=== PATIENT | male | born 1950 | race Caucasian/White ===

== ENCOUNTER 2020-09-02 09:46 | Outpatient (REF) | payer MEDICARE, SELFPAY ==
--- NOTE | 2020-09-02 10:45 | EMG_ITS ---
HISTORY OF PRESENT ILLNESS: This is a 70-year-old man with a 6-month history of bilateral upper extremity pain and numbness. Both hands affected symmetrically. He also has some neck pain. CURRENT MEDICATIONS: Abilify. PHYSICAL EXAMINATION: On examination, he is alert and oriented with normal intellectual functions. Cranial nerves II through XII are normal. Muscle tone and strength are normal in all 4 extremities. Deep tendon reflexes symmetrical. IMPRESSION: Carpal tunnel syndrome. NERVE CONDUCTION STUDY: Moderately severe carpal tunnel syndrome on the right and mild carpal tunnel syndrome on the left. Normal EMG of the right C5-T1 innervated muscles. MD CAT Dickinson/JACEY / [id number]
== END 2020-09-02 09:47 | disposition home or self-care (01) ==
LOC: HO.NEURO 09:46
PROVIDERS: PCP Internal Medicine; Visit Provider Internal Medicine
DX: R20.0 Anesthesia of skin (principal); G62.9 Polyneuropathy, unspecified
CPT/HCPCS: 95860; 95885; 95913

== ENCOUNTER → 2020-11-23 13:16 | Outpatient (BNVA) | payer MEDICARE, SELFPAY | PROVIDERS: PCP Internal Medicine; Visit Provider Orthopaedic Surgery | DX: G56.03 Carpal tunnel syndrome, bilateral upper limbs (principal) | CPT/HCPCS: 99202 ==

== ENCOUNTER 2020-12-16 12:12 | Day surgery (SDC) | payer MEDICARE, SELFPAY ==
[2020-12-09 15:22] VITALS: BMI 24.9
[2020-12-16 13:00] VITALS: BP 100/66; PULSE 72; RESP 16; TEMP 36.7; O2SAT 96
[2020-12-16 14:25] VITALS: BP 115/68; PULSE 70; RESP 20; TEMP 36.6; O2SAT 100
--- NOTE | 2020-12-16 14:26 | W.PM.OPN ---
Operative Note Operative Note Date of Service: 12/16/20 Narrative: Preop diagnosis: 1. Right Carpal tunnel syndrome Postop diagnosis: 1. Right Carpal tunnel syndrome Procedure: 1. Right Carpal tunnel release Surgeon: Abida Roque MD Anesthesia: local block using 1% lidocaine with epinephrine Findings: Thickened transverse carpal ligament. EBL: Less than 5 mL Specimens: None Complications: None Disposition: Brought to recovery room in stable condition Plan: Follow-up for 7-10 days for wound check and suture removal Indications: The patient is 70 years old, with right carpal tunnel syndrome that has been unresponsive to nonoperative management. The risks and benefits of operative treatment including but not limited to risk of damage to blood vessels, nerves, tendons, infection, persistent pain, persistent symptoms, or possible need for additional surgery were discussed with the patient and the patient wishes to proceed with surgery. Procedure: Once consent was obtained a local block was performed using a combination of 1% lidocaine with epinephrine. The patient was then brought back to the operating suite and placed on the operative table in supine position. A tourniquet was applied to the proximal aspect of the right upper extremity and the limb was prepped and draped in a standard surgical fashion. Once assured that we had a good block, a 1.5 cm longitudinal incision was made centered over the right carpal tunnel. The incision was made through the skin to the subcutaneous tissues using a #15 blade. Dissection was made down to the level of the transverse carpal ligament with care being taken to protect the palmar cutaneous nerve. Once the transverse carpal ligament was clearly visualized, a longitudinal incision was made in the transverse carpal ligament 1st using a #15 blade, then using tenotomy scissors under direct visualization. Care was taken to look for and protect the motor branch of the median nerve when seen in this area. Once satisfied with our carpal tunnel release the wound was copiously irrigated with normal saline and hemostasis was obtained with a brief period of local pressure. The skin edges were reapproximated with some 5.0 nylon suture material and a sterile dressing was applied. The patient appears to have tolerated the procedure well and with no complications. All digits were well vascularized at the conclusion of the case.
--- NOTE | 2020-12-16 14:27 | MHC.SHP ---
Pre-Procedural Eval Section B Chief Complaint: carpal tunnel syndrome,right Allergies: Allergies Allergy/AdvReac Type Severity Reaction Status Date / Time No Known Allergies Allergy Verified 12/09/20 15:21 Plan I have reviewed the history and physical and performed a pertinent physical examination on my patient. No changes have occurred unless specified.
== END 2020-12-16 16:00 | disposition home or self-care (01) ==
PROVIDERS: PCP Internal Medicine; Visit Provider Orthopaedic Surgery
PROC: (CPT 64721; principal; 2020-12-16 13:20)
DX: G56.01 Carpal tunnel syndrome, right upper limb (principal); F32.9 Major depressive disorder, single episode, unspecified; G62.9 Polyneuropathy, unspecified; Z79.899 Other long term (current) drug therapy
CPT/HCPCS: 64721

== ENCOUNTER → 2020-12-28 13:59 | Outpatient (BNVA) | payer MEDICARE, SELFPAY | PROVIDERS: PCP Internal Medicine; Visit Provider Orthopaedic Surgery | DX: G56.02 Carpal tunnel syndrome, left upper limb (principal); G56.01 Carpal tunnel syndrome, right upper limb | CPT/HCPCS: 99212 ==

== ENCOUNTER 2021-03-24 06:11 | Outpatient (REF) | payer MEDICARE, SELFPAY ==
[2021-03-24 11:20] LABS: MANUAL DIFF FLAG NO
[2021-03-24 11:38] LABS: Basophils Percent Auto 0.7 % (0-2); Eosinophils Absolute Auto 0.2 X10*3/uL (0.0-0.4); Eosinophils Percent Auto 3.3 % (0-4); Hematocrit 43.9 % (42-52); Hemoglobin 14.3 g/dl (14.0-18.0); Imm Gran Abs Auto 0.02 X10*3/uL (0.00-0.03); Imm Gran Pct Auto 0.3 % (0.0-0.4); Immature Retic Fraction 3.7 % (2.3-13.4); Lymphocytes Absolute Auto 1.7 X10*3/uL (1.2-4.9); Lymphocytes Percent Auto 27.4 % (20-40); Mean Corpuscular HGB Conc 32.6 g/dl (31.0-36.0); Mean Corpuscular Hemoglobin 30.4 pg (27.0-33.0); Mean Corpuscular Volume 93.4 fL (80-98); Mean Platelet Volume 10.9 fL (9.4-12.4); Monocytes Absolute Auto 0.8 X10*3/uL (0.1-1.2); Monocytes Percent Auto 13.6 % (2-11); Neutrophils Absolute Auto 3.3 X10*3/uL (2.0-8.3); Neutrophils Percent Auto 54.7 % (45-73); Platelet Count 180 X10*3/uL (160-400); Red Cell Distribution Width 13.3 % (11.0-16.0); Retic HGB Equivalent 34.5 pg (30.0-35.0); Reticulocyte Percent 0.8 % (0.5-1.8); Reticulocytes Absolute 0.036 X10*6/uL (0.026-0.095); White Blood Count 6.1 X10*3/uL (4.8-10.8)
[2021-03-24 11:48] LABS: Iron 126 mcg/dL (45-160); Percent Iron Saturation 40 % (15-50); Total Iron Binding Capacity 314 mcg/dL (228-428); Unsaturated Iron Binding 188 ug/dL
[2021-03-24 12:08] LABS: Ferritin 105 ng/mL (20-250)
[2021-03-24 12:19] LABS: Folate > 20.0 ng/mL (> or = 4.0); Vitamin B12 1140 pg/mL (200-900)
== END 2021-03-24 06:12 | disposition home or self-care (01) ==
LOC: HO.HMGCLDS 06:11
PROVIDERS: PCP Internal Medicine; Visit Provider Internal Medicine
DX: D64.9 Anemia, unspecified (principal)
CPT/HCPCS: 36415; 82607; 82728; 82746; 83540; 85025; 85045

== ENCOUNTER 2021-04-16 09:06 | Outpatient (REF) | payer MEDICARE, SELFPAY ==
--- NOTE | 2021-04-16 11:27 | MHC.AU.ANO ---
Adult Audiological Evaluation Date of Visit: 04/16/21 Reason for Appointment: Patient has been experiencing gradually increasing hearing difficulty over the last several years. He reports occasional tinnitus in his right ear. Does patient feel they have a hearing loss?: Yes If Yes, Which Ear?: Both Ears When Was Hearing Difficulty First Noticed?: Several Years Has hearing been tested previously?: No Hearing Handicap Inventory: HHIE SCORE: 24 Based on HHIE score, patient has: Mild to moderate perceived hearing handicap Ear History: Ear Deformity: Difference noted on top of left pinna Recent Ear Pain: None Reported Family History of Hearing Loss?: No Recent Ear Infections: None Reported Ear Infections in Childhood: None Reported History of Ear Wax Buildup: Recently had ears cleaned at PCP's office Previous Ear Surgery: None Reported Ear used on the phone: Left Ear Blocked/Full Sensation in Ear(s): None Reported History of occupational noise exposure?: Yes: [employer]- 2 Years History: History: Yes Branch: [employer] Years in : Less than 4 years Medical History: Medical History: Prostate Cancer in 2008, Carpal Tunnel Surgery in 2020 Otoscopy: Right Ear: Unremarkable Left Ear: Unremarkable Tympanometry: Tympanometry performed due to: To assess integrity of the middle ear system Right Ear: Normal Middle Ear System (Type A) Left Ear: Reduced Middle Ear Compliance (Type As) Hearing Evaluation: Transducer(s) Used: Circumaural Headphones Method: Conventional Audiometry Stimuli Used: Pure Tones Right Ear: Description of Hearing: Normal sloping to profound sensorieneural hearing loss Left Ear: Description of Hearing: Normal sloping to profound sensorineural hearing loss Speech Recognition Threshold (SRT): Method Used: Recorded Lists Stimuli Used: Spondee Words Right Ear: 30 dBHL Left Ear: 30 dBHL Word Discrimination: Method: Recorded Lists Word Lists Used: NU-6 Right Ear: 68% at 70 dBHL Left Ear: 68% at 70 dBHL Most Comfortable Level (MCL): Right Ear: 70 dBHL Left Ear: 70 dBHL QuickSIN: Tested binaurally at 70 dBHL: 17 dB SNR Loss, which suggests significant difficulty listening in noise Interpretation of Results: Normal to profound sensorineural hearing loss bilaterally, slightly worse in the left ear. Thickened area noted on top of left pinna. Reduced middle ear compliance in the left ear. QuickSIN results suggest significant difficulty listening in noise. With this degree of hearing loss, it is expected that the patient would have difficulty following along in average conversation. Recommendations: Audiological re-evaluation in one year. Follow-up with PCP or ENT may be warranted due to slight asymmetry in thresholds and reduced middle ear compliance of the left ear. Patient is interested in hearing aids, but would like to first discuss them with his and do research on them at home. He was provided with brochures for [employer], [facility], and [employer]. If he would like to discuss hearing aids in further detail, he is welcome to schedule a hearing aid evaluation. Diagnosis: Primary Diagnosis: H90.3 Bilateral Sensorineural Hearing Loss Services Performed: Comprehensive Audiological Evaluation (CPT 82091), Tympanometry (CPT 10601) Signature: Provider: Markus Muniz, CCC-A
== END 2021-04-16 09:07 | disposition home or self-care (01) ==
LOC: HO.SH 09:06
PROVIDERS: Visit Provider Internal Medicine
DX: H90.3 Sensorineural hearing loss, bilateral (principal)
CPT/HCPCS: 92557; 92567

== ENCOUNTER 2022-01-31 06:06 | Outpatient (REF) | payer MEDICARE, SELFPAY ==
[2022-01-31 11:53] LABS: Immature Retic Fraction 5.2 % (2.3-13.4); Retic HGB Equivalent 35.9 pg (30.0-35.0); Reticulocyte Percent 0.9 % (0.5-1.8); Reticulocytes Absolute 0.042 X10*6/uL (0.026-0.095)
[2022-01-31 12:17] LABS: Alanine Aminotransferase 27 U/L (0-40); Alkaline Phosphatase 67 U/L (39-117); Anion Gap 12 (12-20); Aspartate Amino Transferase 29 U/L (5-37); Bilirubin Total 0.3 mg/dL (0.0-1.0); Blood Urea Nitrogen 18 mg/dL (9-16); Calcium 9.2 mg/dL (8.4-10.2); Carbon Dioxide 25 mmol/L (22-29); Chloride 108 mmol/L (96-108); Cholesterol 177 mg/dL; Estimated Glomerular Filt Rate > 60; Glucose Random 95 mg/dL (60-115); HDL Cholesterol 52 mg/dL; Iron 80 mcg/dL (45-160); LDL Cholesterol Calculated 109 mg/dl; Percent Iron Saturation 26 % (15-50); Sodium 141 mmol/L (135-145); Total Iron Binding Capacity 303 mcg/dL (228-428); Total Protein 6.5 g/dL (6.5-8.0); Triglycerides 81 mg/dL; Unsaturated Iron Binding 223 ug/dL
[2022-01-31 12:30] LABS: Ferritin 101 ng/mL (20-250); Free T4 (Free Thyroxine) 0.86 ng/dL (0.71-1.85); Prostate Specific Antigen Scr < 0.05 ng/mL (<0.05-4.0); Thyroid Stimulating Hormone 3.73 uIU/mL (0.32-4.0)
[2022-01-31 12:51] LABS: Folate > 20.0 ng/mL (> or = 4.0); Vitamin B12 938 pg/mL (200-900)
--- NOTE | 2022-04-14 10:08 | EMG_ITS ---
Right tibial and peroneal motor studies were performed. Right superficial peroneal and sural sensory studies were performed. Tibial H-reflex was obtained and paraspinal muscles were tested with a needle. IMPRESSION: 1. Mild sensory-motor axonal peripheral neuropathy. 2. Chronic right lower, probably, L4-5 radiculopathy. MD KIMANI Patiño/JACEY / [id number]
== END 2022-01-31 06:07 | disposition home or self-care (01) ==
LOC: HO.HMGCLDS 06:06
PROVIDERS: Visit Provider Internal Medicine
DX: Z12.5 Encounter for screening for malignant neoplasm of prostate (principal); D64.9 Anemia, unspecified; E78.00 Pure hypercholesterolemia, unspecified; Z85.46 Personal history of malignant neoplasm of prostate
CPT/HCPCS: 36415; 80053; 80061; 82607; 82728; 82746; 83540; 84153; 84439; 84443; 85045

== ENCOUNTER 2022-04-14 10:09 | Outpatient (REF) | payer MEDICARE, SELFPAY | END 2022-04-14 10:10 | disposition home or self-care (01) | LOC: HO.NEURO 10:09 | PROVIDERS: PCP Internal Medicine; Visit Provider Internal Medicine | DX: R20.0 Anesthesia of skin (principal) | CPT/HCPCS: 95886; 95909 ==

== ENCOUNTER 2022-11-03 07:14 | Outpatient (REF) | payer MEDICARE, SELFPAY ==
--- NOTE | ~2022-11-03 | MR_ITS ---
MR LUMBAR SPINE WITHOUT IV CONTRAST CLINICAL INFORMATION: Lumbar region radiculopathy. COMPARISON: None available. TECHNIQUE: MRI of the lumbar spine was obtained using routine sequences without contrast. FINDINGS: There are 5 nonrib-bearing lumbar-type vertebral bodies. Slight grade 1 anterolisthesis of L5 on S1. Lumbar alignment is otherwise maintained. Vertebral body heights are preserved. There is disc desiccation at L2-L3, L3-L4, and L5-S1. Modic type I endplate signal changes at T11-T12, L1-L2, L2-L3, L3-L4. There is no additional bone marrow edema. There are no acute fractures. The conus terminates at the L1 level. Small left renal cyst. No significant extraspinal soft tissue findings. L1-L2: Disc contour is normal. No central canal stenosis and no foraminal stenosis. L2-L3: Small annular disc bulge. No central canal stenosis. Mild foraminal encroachment bilaterally. L3-L4: Small annular disc bulge and mild bilateral facet arthropathy. There is no central canal stenosis. There is mild foraminal encroachment bilaterally. There is a small ventral annular fissure. L4-L5: There is a diffuse annular disc bulge and there is bilateral facet arthropathy. There is no central canal stenosis. There is mild foraminal encroachment bilaterally. L5-S1: Small annular disc bulge. Bilateral facet arthropathy. There is no central canal stenosis. Moderate right and mild to moderate left foraminal encroachment. MR/MR lumbar spine wo con IMPRESSION: Mild to moderate lumbar spondylosis. There is no severe central canal stenosis and there is no severe foraminal stenosis within the lumbar spine. At L5-S1, slight grade 1 anterolisthesis and spondylitic changes result in moderate right and mild to moderate left foraminal encroachment.
== END 2022-11-03 07:15 | disposition home or self-care (01) ==
LOC: HO.MRI 07:14
PROVIDERS: Visit Provider Internal Medicine
DX: M54.16 Radiculopathy, lumbar region (principal)
CPT/HCPCS: 72148

== ENCOUNTER 2023-02-17 06:05 | Outpatient (REF) | payer MEDICARE, SELFPAY ==
[2023-02-17 06:41] LABS: MANUAL DIFF FLAG NO
[2023-02-17 06:42] LABS: Basophils Absolute Auto 0.1 X10*3/uL (0.0-0.2); Basophils Percent Auto 1.1 % (0-2); Eosinophils Absolute Auto 0.2 X10*3/uL (0.0-0.4); Hematocrit 41.8 % (42.0-52.0); Hemoglobin 13.9 g/dl (14.0-18.0); Imm Gran Abs Auto 0.01 X10*3/uL (0.00-0.03); Imm Gran Pct Auto 0.2 % (0.0-0.4); Lymphocytes Percent Auto 37.5 % (20-40); Mean Corpuscular HGB Conc 33.3 g/dl (31.0-36.0); Mean Corpuscular Hemoglobin 29.7 pg (27.0-33.0); Mean Corpuscular Volume 89.3 fL (80.0-98.0); Monocytes Absolute Auto 0.7 X10*3/uL (0.1-1.2); Monocytes Percent Auto 13.2 % (2-11); Neutrophils Absolute Auto 2.4 x10*3/uL (2.0-8.3); Platelet Count 159 X10*3/uL (160-400); Red Blood Count 4.68 X10*6/uL (4.60-5.80); Red Cell Distribution Width 13.3 % (11.0-16.0); White Blood Count 5.4 X10*3/uL (4.8-10.8)
[2023-02-17 07:25] LABS: Alanine Aminotransferase 19 U/L (0-40); Albumin Level 4.1 g/dL (3.5-5.0); Alkaline Phosphatase 75 U/L (39-117); Anion Gap 11 (12-20); Aspartate Amino Transferase 25 U/L (5-37); Bilirubin Total 0.4 mg/dL (0.0-1.0); Blood Urea Nitrogen 17 mg/dL (9-16); Carbon Dioxide 27 mmol/L (22-29); Chloride 108 mmol/L (96-108); Cholesterol 185 mg/dL; Estimated Average Glucose 117 mg/dL; Estimated Glomerular Filt Rate > 60; Glucose Random 89 mg/dL (60-115); HDL Cholesterol 52 mg/dL; Hemoglobin A1c % 5.7 %; LDL Cholesterol Calculated 124 mg/dl; Potassium 4.2 mmol/L (3.3-5.1); Rheumatoid Factor < 13.0 IU/mL (<15.0); Sodium 142 mmol/L (135-145); Total Protein 6.4 g/dL (6.5-8.0); Triglycerides 48 mg/dL
[2023-02-17 07:56] LABS: Folate 15.9 ng/mL (> or = 4.0); PSA,Total (Free>4and<10) < 0.10 ng/mL (0.00-4.00); Vitamin B12 916 pg/mL (200-900)
[2023-02-17 08:07] LABS: HBS Num1 0.69 mIU/mL (0-7.99); HBc Num1 0.15 S/CO (0.00-0.79); HBsAGNum1 0.32 S/CO (0.00-0.99); HIV AB/AG Nonreactive (Nonreactive); HIV Num 1 0.07 S/CO (0.00-0.99); Hepatitis B Core Antibody Nonreactive (Nonreactive); Hepatitis B Surface Antigen Negative (Negative); ~HepC Num1 0.11 S/CO (0.00-0.79); ~Hepatitis B Surface Antibody NONREACTIVE (Nonreactive); ~Hepatitis C Antibody Nonreactive (Nonreactive)
[2023-02-20 17:03] LABS: Homocysteine 7.9 umol/L (<11.4)
[2023-02-20 22:14] LABS: Lyme Abs Screen <0.90 index
[2023-02-21 23:49] LABS: Methylmalonic Acid 102 nmol/L (87-318)
[2023-02-21 23:53] LABS: Prot Elec - Alpha1 0.2 g/dL (0.2-0.3); Prot Elec - Alpha2 0.7 g/dL (0.5-0.9); Prot Elec - Beta 1 0.4 g/dL (0.4-0.6); Prot Elec - Beta 2 0.3 g/dL (0.2-0.5); Prot Elec - Gamma 0.9 g/dL (0.8-1.7); Prot Elec - Total Protein 6.4 g/dL (6.1-8.1)
[2023-02-23 14:29] LABS: Anti Nuclear Antibody Screen POSITIVE (NEGATIVE)
== END 2023-02-17 06:06 | disposition home or self-care (01) ==
LOC: HO.HMGCLDS 06:05
PROVIDERS: PCP Internal Medicine; Visit Provider Internal Medicine
DX: Z12.5 Encounter for screening for malignant neoplasm of prostate (principal); Z11.4 Encounter for screening for human immunodeficiency virus [HIV]; M54.16 Radiculopathy, lumbar region; E78.00 Pure hypercholesterolemia, unspecified; G62.9 Polyneuropathy, unspecified; R79.89 Other specified abnormal findings of blood chemistry; Z85.46 Personal history of malignant neoplasm of prostate; Z11.59 Encounter for screening for other viral diseases; Z72.89 Other problems related to lifestyle
CPT/HCPCS: 36415; 80053; 80061; 82607; 82746; 83036; 83090; 83921; 84153; 84165; 84439; 84443; 85025; 86038; 86039; 86431; 86617; 86618; 86704; 86706; 86803; 87340; 87389

== ENCOUNTER 2023-08-18 08:32 | Outpatient (AMB) | payer MEDICARE, SELFPAY ==
[2023-08-18 08:44] VITALS: BP 104/62; PULSE 65; O2SAT 98; BMI 24.5
--- NOTE | 2023-08-18 08:44 | MHC.PC.OV ---
Vital Signs 08/18/23 08:44 Height 5 ft 9 in Weight 166 lb BMI 24.5 BP 104/62 Blood Pressure Location Lt brachial Position Sitting Pulse 65 Pulse Source Pulse Oximeter Pulse Oximetry (%) 98 Oxygen Delivery Method Room Air Intake Visit Reasons: radiculopathy, hx of prostate cancer, KELL Allergies No Known Allergies Allergy (Verified 08/18/23 08:44) Medication List - Last Reconciled 08/18/23 by Nixon Adams MD ferrous sulfate (iron) 325 mg PO 3XW gabapentin 300 mg PO BEDTIME 90 days multivitamin 1 tab PO DAILY sertraline 25 mg PO DAILY Tobacco use date assessed: 02/16/23 Fall risk assessment: No Falls in past year Last assessed Fall Risk: 08/18/23 Dental Screening Dental Screen Date: 08/18/23 Did you have a dental visit in the last 12 months?: Yes Did you have a dental problem in the last 6 months where you did not have access to dental care?: No Was dental information given to patient?: Patient has dentist HPI radiculopathy, hx of prostate cancer, KELL HPI Details 73-year-old male with a history of prostate cancer generalized anxiety disorder and lumbar radiculopathy last seen in January 2023. Patient is up-to-date with colonoscopy [facility] Medical History (Updated 02/16/23 @ 09:08 by Nixon Adams MD) Anemia Anxiety and depression Peripheral neuropathy History of prostate cancer Carpal tunnel syndrome on both sides Surgical History History of prostatectomy History of tonsillectomy Hx of colonoscopy Family History (Updated 02/16/23 @ 08:55 by Andrae Little) Father Colon cancer Mother CVD (cardiovascular disease) Social History (Updated 02/08/22 @ 12:32 by Nixon Adams MD) Housing: House Are you a primary healthcare administrative assistant to a significant other at home: No Do you presently have visiting nurse or other home services: No Alcohol intake: former Patient Tobacco Use Status: Never used Tobacco e-Cigarette/Vaping Use: Never Used Second Hand Smoke Exposure: No Current occupational status: retired Cognitive needs: No Hearing needs: No Vision needs: Yes Questionnaire PHQ-9 Over the last 2 weeks, how often have you been bothered by any of the following problems? 1. Little interest or pleasure in doing things: not at all 2. Feeling down, depressed, or hopeless: not at all 3. Trouble falling or staying asleep, or sleeping too much: not at all 4. Feeling tired or having little energy: not at all 5. Poor appetite or overeating: not at all 6. Feeling bad about yourself - or that you are a failure or have let yourself or your family down: not at all 7. Trouble concentrating on things, such as reading the newspaper or watching television: not at all 8. Moving or speaking so slowly that other people could have noticed. Or the opposite - being so fidgety or restless that you have been moving around a lot more than usual: not at all 9. Thoughts that you would be better off or of hurting yourself in some way: not at all Total score: 0 Depression Screening Interpretation: Negative Source: Developed by Drs. Rodrigue Will, Marta Owens, Galdino Gamez and colleagues, with an educational sean from [employer]. Thrive Questionnaire Date Thrive assessed: 02/16/23 AUDIT C Alcohol Use Questionnaire (AUDIT-C) 1. How often do you have a drink containing alcohol?: Monthly or less 2. How many drinks containing alcohol do you have on a typical day when you are drinking?: 1 or 2 3. How often do you have six or more drinks on one occasion?: Never Total Score: 1 KELL-7 AMB Questionnaire KELL-7 Date KELL - 7 assessed: 02/16/23 Source: Developed by Drs. Rodrigue Will, Marta Owens, Galdino Gamez and colleagues, with an educational sean from [employer]. Physical exam (Primary Care) Vital Signs: Last Vital Signs Pulse 65 08/18/23 08:44 BP 104/62 08/18/23 08:44 Pulse Ox 98 08/18/23 08:44 Oxygen Delivery Method Room Air 08/18/23 08:44 BMI result Body Mass Index 24.5 Tobacco/Smoking Status: Tobacco use Status Tobacco use date assessed 02/16/23 08/18/23 08:48 Patient Tobacco Use Status Never used Tobacco 08/18/23 08:48 e-Cigarette/Vaping Use Never Used 08/18/23 08:48 PHQ-9: PHQ-9 Score PHQ-9: Total score 0 08/18/23 08:48 Depression Screening Interpretation: Negative Thrive Assessment: Date of Thrive Assessment Date Thrive assessed 02/16/23 08/18/23 08:48 Const General: alert; No acute distress Eyes Conjunctivae: conjunctivae normal Resp Auscultation: clear to auscultation bilaterally Cardio Rate: regular rate Rhythm: regular rhythm GI Inspection: Yes normal to inspection Extrem General: Yes normal to inspection and No edema Assessment and Plan Assessment & Plan (1) Bilateral lumbar radiculopathy: Comment: August 2022 nerve conduction test MRI November 2022Mild to moderate lumbar spondylosis. There is no severe central canal stenosis and there is no severe foraminal stenosis within the lumbar spine. At L5-S1, slight grade 1 anterolisthesis and spondylitic changes result in moderate right and mild to moderate left foraminal encroachment. Code(s): M54.16 - Radiculopathy, lumbar region Plan: Continue to treat conservatively (2) Generalized anxiety disorder: Code(s): F41.1 - Generalized anxiety disorder Plan: Continue with medication (3) Anemia: Code(s): D64.9 - Anemia, unspecified Qualifiers: Anemia type: unspecified type Qualified Code(s): D64.9 - Anemia, unspecified Plan: Will continue to follow-up with the next blood work (4) History of prostate cancer: Comment: 2008 Code(s): Z85.46 - Personal history of malignant neoplasm of prostate Plan: Stable Orders: Orders Ferritin 6 Months D64.9 - Anemia, unspecified IRON PROFILE 6 Months D64.9 - Anemia, unspecified Vitamin B12 and Folate 6 Months D64.9 - Anemia, unspecified Free T4 (Free Thyroxine) 6 Months F41.1 - Generalized anxiety disorder Thyroid Stimulating Hormone 6 Months F41.1 - Generalized anxiety disorder Lipid Panel 6 Months E78.00 - Pure hypercholesterolemia, unspecified, F41.1 - Generalized anxiety disorder Complete Blood Count Auto Diff 6 Months D64.9 - Anemia, unspecified Reticulocyte Count 6 Months D64.9 - Anemia, unspecified Comprehensive Met. Panel 6 Months F41.1 - Generalized anxiety disorder Vitamin D 25-OH Total 6 Months F41.1 - Generalized anxiety disorder PSA,Total (Free>4and<10) 6 Months Z85.46 - Personal history of malignant neoplasm of prostate Medications: Changed From gabapentin 300 mg PO BID 30 days 180 caps 2RF G62.9 - Polyneuropathy, unspecified To gabapentin 300 mg PO BEDTIME 90 days 90 caps 3RF G62.9 - Polyneuropathy, unspecified Coding Level of Care Code Est Pt Level 4 (27779) Diagnoses Bilateral lumbar radiculopathy M54.16 Generalized anxiety disorder F41.1 Anemia, unspecified type D64.9 Anemia type: unspecified type History of prostate cancer Z85.46
== END 2023-08-18 09:14 | disposition home or self-care (01) ==
PROVIDERS: Visit Provider Internal Medicine
DX: M54.16 Radiculopathy, lumbar region (principal); F41.1 Generalized anxiety disorder; D64.9 Anemia, unspecified; Z85.46 Personal history of malignant neoplasm of prostate
CPT/HCPCS: 99214

== ENCOUNTER 2024-02-12 06:05 | Outpatient (REF) | payer MEDICARE, SELFPAY ==
[2024-02-12 11:18] LABS: MANUAL DIFF FLAG NO
[2024-02-12 11:29] LABS: Basophils Absolute Auto 0.1 X10*3/uL (0.0-0.2); Basophils Percent Auto 1.2 % (0-2); Eosinophils Absolute Auto 0.2 X10*3/uL (0.0-0.4); Eosinophils Percent Auto 4.2 % (0-4); Hematocrit 40.6 % (42.0-52.0); Hemoglobin 13.2 g/dl (14.0-18.0); Imm Gran Abs Auto 0.01 X10*3/uL (0.00-0.03); Imm Gran Pct Auto 0.2 % (0.0-0.4); Immature Retic Fraction 3.7 % (2.3-13.4); Lymphocytes Absolute Auto 1.7 X10*3/uL (1.2-4.9); Lymphocytes Percent Auto 34.7 % (20-40); Mean Corpuscular HGB Conc 32.5 g/dl (31.0-36.0); Mean Corpuscular Volume 92.3 fL (80.0-98.0); Mean Platelet Volume 10.9 fL (9.4-12.4); Monocytes Absolute Auto 0.7 X10*3/uL (0.1-1.2); Monocytes Percent Auto 14.9 % (2-11); Neutrophils Absolute Auto 2.2 x10*3/uL (2.0-8.3); Neutrophils Percent Auto 44.8 % (45-73); Platelet Count 161 X10*3/uL (160-400); Red Cell Distribution Width 13.2 % (11.0-16.0); Retic HGB Equivalent 34.4 pg (30.0-35.0); Reticulocyte Percent 0.7 % (0.5-1.8); Reticulocytes Absolute 0.032 X10*6/uL (0.026-0.095)
[2024-02-12 12:57] LABS: PSA,Total (Free>4and<10) < 0.10 ng/mL (0.00-4.00)
[2024-02-12 13:15] LABS: Folate 14.5 ng/mL (> or = 4.0)
[2024-02-12 13:16] LABS: Alanine Aminotransferase 20 U/L (0-40); Albumin Level 3.8 g/dL (3.5-5.0); Alkaline Phosphatase 80 U/L (39-117); Anion Gap 10 (12-20); Aspartate Amino Transferase 27 U/L (5-37); Bilirubin Total 0.3 mg/dL (0.0-1.0); Blood Urea Nitrogen 23 mg/dL (9-16); Calcium 9.2 mg/dL (8.4-10.2); Carbon Dioxide 29 mmol/L (22-29); Chloride 107 mmol/L (96-108); Cholesterol 166 mg/dL (<200); Estimated Glomerular Filt Rate > 60; Glucose Random 89 mg/dL (60-115); HDL Cholesterol 50 mg/dL (>40); Iron 66 mcg/dL (45-160); LDL Cholesterol Calculated 103 mg/dL (<100); Percent Iron Saturation 27 % (15-50); Potassium 4.2 mmol/L (3.3-5.1); Sodium 142 mmol/L (135-145); Total Iron Binding Capacity 246 mcg/dL (228-428); Total Protein 6.5 g/dL (6.5-8.0); Triglycerides 67 mg/dL (<150); Unsaturated Iron Binding 180 ug/dL
[2024-02-12 13:17] LABS: Ferritin 129 ng/mL (20-250); Free T4 (Free Thyroxine) 0.68 ng/dL (0.71-1.85); Vitamin D 25-OH Total 50.5 ng/mL (>30)
[2024-02-12 17:22] LABS: Vitamin B12 945 pg/mL (200-900)
== END 2024-02-12 06:06 | disposition home or self-care (01) ==
LOC: HO.HMGCLDS 06:05
PROVIDERS: PCP Internal Medicine; Visit Provider Internal Medicine
DX: D64.9 Anemia, unspecified (principal); E78.00 Pure hypercholesterolemia, unspecified; F41.1 Generalized anxiety disorder; Z85.46 Personal history of malignant neoplasm of prostate; Z12.5 Encounter for screening for malignant neoplasm of prostate
CPT/HCPCS: 36415; 80053; 80061; 82306; 82607; 82728; 82746; 83540; 84153; 84439; 84443; 85025; 85045

== ENCOUNTER 2024-02-23 08:42 | Outpatient (AMB) | payer MEDICARE, SELFPAY ==
[2024-02-23 08:43] VITALS: BP 102/64; PULSE 68; O2SAT 97; BMI 25.1
--- NOTE | 2024-02-23 08:43 | MHC.PC.OV ---
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: No Allergies No Known Allergies Allergy (Verified 02/23/24 08:43) Medication List - Last Reconciled 02/23/24 by Nixon Adams MD ferrous sulfate (iron) 325 mg PO 3XW gabapentin 300 mg PO BEDTIME 90 days multivitamin 1 tab PO DAILY sertraline 25 mg PO DAILY Tobacco use date assessed: 02/23/24 Fall risk assessment: No Falls in past year Last assessed Fall Risk: 02/23/24 Dental Screening Dental Screen Date: 08/18/23 Did you have a dental visit in the last 12 months?: Yes Did you have a dental problem in the last 6 months where you did not have access to dental care?: No Was dental information given to patient?: Patient has dentist HPI Annual Exam HPI Details 73-year-old male with a history of lumbar radiculopathy generalized anxiety disorder history of prostate cancer coming in for physical exam. Last seen in July 2023. Patient's colonoscopy is September [address] [facility] [address] Alicia Christopher [facility] [place] Medical History (Updated 02/16/23 @ 09:08 by Nixon Adams MD) Anemia Anxiety and depression Peripheral neuropathy History of prostate cancer Carpal tunnel syndrome on both sides Surgical History History of prostatectomy History of tonsillectomy Hx of colonoscopy Family History (Updated 02/16/23 @ 08:55 by Andrae Little, [facility]) Father Colon cancer Mother CVD (cardiovascular disease) Social History (Updated 02/23/24 @ 09:13 by Nixon Adams MD) Housing: House Are you a primary career development coordinator/teacher to a significant other at home: No Do you presently have visiting nurse or other home services: No Alcohol intake: former Patient Tobacco Use Status: Former Tobacco user Years Smoked: 1973 quit e-Cigarette/Vaping Use: Never Used Second Hand Smoke Exposure: No Current occupational status: retired Cognitive needs: No Hearing needs: Yes Vision needs: Yes Questionnaire PHQ-9 Over the last 2 weeks, how often have you been bothered by any of the following problems? 1. Little interest or pleasure in doing things: not at all 2. Feeling down, depressed, or hopeless: not at all 3. Trouble falling or staying asleep, or sleeping too much: not at all 4. Feeling tired or having little energy: not at all 5. Poor appetite or overeating: not at all 6. Feeling bad about yourself - or that you are a failure or have let yourself or your family down: not at all 7. Trouble concentrating on things, such as reading the newspaper or watching television: not at all 8. Moving or speaking so slowly that other people could have noticed. Or the opposite - being so fidgety or restless that you have been moving around a lot more than usual: not at all 9. Thoughts that you would be better off or of hurting yourself in some way: not at all Total score: 0 Depression Screening Interpretation: Negative Depression Screening Done: Yes 36704 - PHQ-9 Billing: Yes Source: Developed by Drs. Rodrigue Will, Marta Owens, Galdino Gamez and colleagues, with an educational sean from [employer]. Thrive Questionnaire Date Thrive assessed: 02/23/24 I am a: Patient What is your living situation today?: I have a steady place to live Within the past 12 months, did the food you bought not last and you didn't have the money to get more?: Never true Within the past 12 months, did you worry whether your food would run out before you got money to buy more?: Never true Do you have trouble paying for medicines?: No Do you have trouble getting transportation to medical appointments?: No Do you have trouble paying your heating and electricity bill?: No Do you have trouble taking care of your child, family member or friend?: No Do you have trouble with day-to-day activities such as bathing, preparing meals, shopping, managing finances, etc.?: No Are you currently unemployed and looking for a job?: No Are you interested in more education?: No Please select the resources that you would like help with: None Currently or been in a relationship where the following occur: no concerns reported THRIVE Score: 0 AUDIT C Alcohol Use Questionnaire (AUDIT-C) 1. How often do you have a drink containing alcohol?: Monthly or less 2. How many drinks containing alcohol do you have on a typical day when you are drinking?: 1 or 2 3. How often do you have six or more drinks on one occasion?: Never Total Score: 1 KELL-7 AMB Questionnaire KELL-7 Date KELL - 7 assessed: 02/23/24 Feeling nervous, anxious, or on edge: 0 = Not at all Not being able to stop or control worryin = Not at all Worrying too much about different things: 0 = Not at all Trouble relaxin = Not at all Being so restless that it is hard to sit still: 0 = Not at all Becoming easily annoyed or irritable: 0 = Not at all Feeling afraid as if something awful might happen: 0 = Not at all Total KELL-7 score (0-4 normal; 5-9 mild; 10-14 moderate; 15-21 severe): 0 Source: Developed by Drs. Rodrigue Will, Marta Owens, Galdino Gamez and colleagues, with an educational sean from [employer]. KELL-7 Assessment Billing KELL-7 Assessment Tool: KELL-7 Assessment 45657 Review of Systems Const Denies poor appetite and Denies weakness Eyes Denies no additional complaints ENT Reports Normal hearing present, Denies dizziness, Denies nasal congestion, Denies tinnitus and Denies sore throat Card Denies chest pain, Denies syncope, Denies rapid heart rate and Denies dyspnea Resp Denies cough and Denies dyspnea GI Denies change in stool character, Reports constipation, Denies diarrhea, Denies nausea and Denies vomiting Denies dysuria and Denies urinary frequency Neuro Reports Normal hearing present, Denies confusion, Denies dizziness, Denies syncope and Denies weakness Psych Denies confusion Physical exam (Primary Care) Vital Signs: Last Vital Signs Pulse 68 02/23/24 08:43 BP 102/64 02/23/24 08:43 Pulse Ox 97 02/23/24 08:43 Oxygen Delivery Method Room Air 02/23/24 08:43 BMI result Body Mass Index 25.1 Tobacco/Smoking Status: Tobacco use Status Tobacco use date assessed 02/23/24 02/23/24 08:44 Patient Tobacco Use Status Never used Tobacco 02/23/24 08:44 e-Cigarette/Vaping Use Never Used 02/23/24 08:44 PHQ-9: PHQ-9 Score PHQ-9: Total score 0 02/23/24 08:55 Depression Screening Interpretation: Negative Thrive Assessment: Date of Thrive Assessment Date Thrive assessed 02/23/24 02/23/24 08:44 Currently or been in a relationship where the following occur: no concerns reported Const General: No confusion Orientation/consciousness: No confusion HENMT Head: Yes normocephalic Ears: external ears normal and TM's normal bilaterally Face and sinus: Yes normal facial exam Mouth: moist mucous membranes Throat: Yes tonsils normal Eyes Conjunctivae: conjunctivae normal Pupils: Equal, round and reactive pupils present and Pupil accommodation reflex normal Direct Ophthalmoscopy: normal light reflex Neck Neck: No lymphadenopathy Thyroid: Thyroid normal Chest Chest palpation & inspection: normal inspection of the chest Resp Effort & Inspection: normal respiratory effort and no audible wheezes Auscultation: clear to auscultation bilaterally, no crackles, no wheezes and lung sounds not diminished Cardio Rate: regular rate Rhythm: regular rhythm Peripheral pulses: radial pulses present and dorsalis pedis present GI Other: guaiac negative no prostate Palpation (GI): no masses Auscultation: normal bowel sounds and normoactive bowel sounds Male General Exam: Yes normal external exam Skin General skin exam: no rashes or lesions noted Rashes: no rashes Neuro General: No confusion Cranial nerves: Yes Equal, round and reactive pupils present and Yes Normal hearing present Cognition (Neuro): normal cognition Gait exam (Neuro): Normal gait present Motor exam (neuro): 5/5 motor strength present throughout Deep tendon reflexes (DTR's): Right brachioradialis reflex intensity grade: 2+, Left brachioradialis reflex intensity grade: 2+, Right patellar reflex intensity grade: 2+ and Left patellar reflex intensity grade: 2+ Extrem General: No edema Assessment and Plan Assessment & Plan (1) Annual physical exam: Code(s): Z00.00 - Encounter for general adult medical examination without abnormal findings (2) Anemia: Code(s): D64.9 - Anemia, unspecified Qualifiers: Anemia type: unspecified type Qualified Code(s): D64.9 - Anemia, unspecified Plan: Chronic and stable (3) History of prostate cancer: Comment: 2008 Code(s): Z85.46 - Personal history of malignant neoplasm of prostate Plan: Continue to monitor (4) Generalized anxiety disorder: Code(s): F41.1 - Generalized anxiety disorder Plan: Continue with present medication (5) Peripheral neuropathy: Comment: March 2022 Mild sensory-motor axonal peripheral neuropathy. 2. Chronic right lower, probably, L4-5 radiculopathy. 08/2022 Bilateral lower Chronic lumbar radiculopathy Code(s): G62.9 - Polyneuropathy, unspecified Plan: Continue with gabapentin Coding Level of Care Code Est Pt Prev Care >65y(19850) Diagnoses Annual physical exam Z00.00 Anemia, unspecified type D64.9 Anemia type: unspecified type History of prostate cancer Z85.46 Generalized anxiety disorder F41.1 Peripheral neuropathy G62.9 Additional Codes KELL-7 Assessment Billing - KELL-7 Assessment Tool: KELL-7 Assessment 13705 ([id number])
== END 2024-02-23 09:32 | disposition home or self-care (01) ==
PROVIDERS: Visit Provider Internal Medicine
DX: Z00.00 Encounter for general adult medical examination without abnormal findings (principal); D64.9 Anemia, unspecified; Z85.46 Personal history of malignant neoplasm of prostate; F41.1 Generalized anxiety disorder; G62.9 Polyneuropathy, unspecified
CPT/HCPCS: 99397

== ENCOUNTER 2025-02-28 10:07 | Outpatient (AMB) | payer MEDICARE, SELFPAY ==
[2025-02-28 10:15] VITALS: BP 112/62; PULSE 91; O2SAT 98; BMI 23.6
--- NOTE | 2025-02-28 10:15 | MHC.PC.OV ---
Vital Signs 02/28/25 10:15 Height 5 ft 9 in Weight 160 lb BMI 23.6 BP 112/62 Blood Pressure Location Lt brachial Position Sitting Pulse 91 Pulse Source Pulse Oximeter Pulse Oximetry (%) 98 Oxygen Delivery Method Room Air Intake Visit Reasons: Annual Exam Allergies No Known Allergies Allergy (Verified 02/28/25 10:16) Medication List - Last Reconciled 02/28/25 by Nixon Adams MD ferrous sulfate (iron) 325 mg PO 3XW gabapentin 300 mg PO BEDTIME 90 days multivitamin 1 tab PO DAILY sertraline 25 mg PO DAILY Tobacco use date assessed: 02/28/25 Fall risk assessment: No Falls in past year Last assessed Fall Risk: 02/28/25 Dental Screening Dental Screen Date: 02/28/25 Did you have a dental visit in the last 12 months?: Yes Did you have a dental problem in the last 6 months where you did not have access to dental care?: No Was dental information given to patient?: Patient has dentist HPI Annual Exam HPI Details [facility] Alicia Mauricio and dental [facility] Medical History (Updated 02/28/25 @ 10:35 by Nixon Adams MD) Anemia Anxiety and depression Peripheral neuropathy History of prostate cancer Carpal tunnel syndrome on both sides Surgical History History of prostatectomy History of tonsillectomy Hx of colonoscopy Family History (Updated 02/16/23 @ 08:55 by Andrae Little, ON LICENSE OF [facility]) Father Colon cancer Mother CVD (cardiovascular disease) Social History (Updated 02/23/24 @ 09:13 by Nixon Adams MD) Housing: House Are you a primary respiratory care faculty to a significant other at home: No Do you presently have visiting nurse or other home services: No Alcohol intake: former Patient Tobacco Use Status: Former Tobacco user Tobacco use type: Cigarette Years Smoked: 1974 quit e-Cigarette/Vaping Use: Never Used Second Hand Smoke Exposure: No Current occupational status: retired Cognitive needs: No Hearing needs: Yes Vision needs: Yes Questionnaire PHQ-9 Over the last 2 weeks, how often have you been bothered by any of the following problems? 1. Little interest or pleasure in doing things: not at all 2. Feeling down, depressed, or hopeless: not at all 3. Trouble falling or staying asleep, or sleeping too much: not at all 4. Feeling tired or having little energy: not at all 5. Poor appetite or overeating: not at all 6. Feeling bad about yourself - or that you are a failure or have let yourself or your family down: not at all 7. Trouble concentrating on things, such as reading the newspaper or watching television: not at all 8. Moving or speaking so slowly that other people could have noticed. Or the opposite - being so fidgety or restless that you have been moving around a lot more than usual: not at all 9. Thoughts that you would be better off or of hurting yourself in some way: not at all Total score: 0 Depression Screening Interpretation: Negative Depression Screening Done: Yes 48005 - PHQ-9 Billing: Yes Source: Developed by Drs. Rodrigue Will, Marta Owens, Galdino Gamez and colleagues, with an educational sean from [employer]. Thrive Questionnaire Date Thrive assessed: 02/21/25 I am a: Patient What is your living situation today?: I have a steady place to live Within the past 12 months, did the food you bought not last and you didn't have the money to get more?: Never true Within the past 12 months, did you worry whether your food would run out before you got money to buy more?: Never true Do you have trouble paying for medicines?: No Do you have trouble getting transportation to medical appointments?: No Do you have trouble paying your heating and electricity bill?: No Do you have trouble taking care of your child, family member or friend?: No Do you have trouble with day-to-day activities such as bathing, preparing meals, shopping, managing finances, etc.?: No Are you currently unemployed and looking for a job?: No Are you interested in more education?: No Please select the resources that you would like help with: None Currently or been in a relationship where the following occur: No concerns reported THRIVE Score: 0 AUDIT C Alcohol Use Questionnaire (AUDIT-C) 1. How often do you have a drink containing alcohol?: Never 3. How often do you have six or more drinks on one occasion?: Never Total Score: 0 KELL-7 AMB Questionnaire KELL-7 Date KELL - 7 assessed: 02/28/25 Feeling nervous, anxious, or on edge: 0 = Not at all Not being able to stop or control worryin = Not at all Worrying too much about different things: 0 = Not at all Trouble relaxin = Not at all Being so restless that it is hard to sit still: 0 = Not at all Becoming easily annoyed or irritable: 0 = Not at all Feeling afraid as if something awful might happen: 0 = Not at all Total KELL-7 score (0-4 normal; 5-9 mild; 10-14 moderate; 15-21 severe): 0 Source: Developed by Drs. Rodrigue Will, Marta Owens, Galdino Gamez and colleagues, with an educational sean from [employer]. KELL-7 Assessment Billing KELL-7 Assessment Tool: KELL-7 Assessment 16767 Review of Systems Const Denies poor appetite and Denies weakness Eyes Denies no additional complaints ENT Reports Normal hearing present, Denies dizziness, Denies nasal congestion, Denies tinnitus and Denies sore throat Card Denies chest pain, Denies syncope, Denies rapid heart rate and Denies dyspnea Resp Denies cough and Denies dyspnea GI Denies change in stool character, Reports constipation, Denies diarrhea, Denies nausea and Denies vomiting Denies dysuria and Denies urinary frequency Neuro Reports Normal hearing present, Denies confusion, Denies dizziness, Denies syncope and Denies weakness Psych Denies confusion Physical exam (Primary Care) Vital Signs: Last Vital Signs Pulse 91 02/28/25 10:15 BP 112/62 02/28/25 10:15 Pulse Ox 98 02/28/25 10:15 Oxygen Delivery Method Room Air 02/28/25 10:15 BMI result Body Mass Index 23.6 Tobacco/Smoking Status: Tobacco use Status Tobacco use date assessed 02/28/25 02/28/25 10:16 Patient Tobacco Use Status Former Tobacco user 02/28/25 10:16 Tobacco use type Cigarette 02/28/25 10:16 e-Cigarette/Vaping Use Never Used 02/28/25 10:16 PHQ-9: PHQ-9 Score PHQ-9: Total score 0 02/28/25 10:35 Depression Screening Interpretation: Negative Thrive Assessment: Date of Thrive Assessment Date Thrive assessed 02/21/25 02/28/25 10:16 Currently or been in a relationship where the following occur: No concerns reported Const General: No confusion Orientation/consciousness: No confusion HENMT Head: Yes normocephalic Ears: external ears normal and TM's normal bilaterally Face and sinus: Yes normal facial exam Mouth: moist mucous membranes Throat: Yes tonsils normal Eyes Conjunctivae: conjunctivae normal Pupils: Equal, round and reactive pupils present and Pupil accommodation reflex normal Direct Ophthalmoscopy: normal light reflex Neck Neck: No lymphadenopathy Thyroid: Thyroid normal Chest Chest palpation & inspection: normal inspection of the chest Resp Effort & Inspection: normal respiratory effort and no audible wheezes Auscultation: clear to auscultation bilaterally, no crackles, no wheezes and lung sounds not diminished Cardio Rate: regular rate Rhythm: regular rhythm Peripheral pulses: radial pulses present and dorsalis pedis present GI Other: guaiac negative no prostate Palpation (GI): no masses Auscultation: normal bowel sounds and normoactive bowel sounds Male General Exam: Yes normal external exam Skin General skin exam: no rashes or lesions noted Rashes: no rashes Neuro General: No confusion Cranial nerves: Yes Equal, round and reactive pupils present and Yes Normal hearing present Cognition (Neuro): normal cognition Gait exam (Neuro): Normal gait present Motor exam (neuro): 5/5 motor strength present throughout Deep tendon reflexes (DTR's): Right brachioradialis reflex intensity grade: 2+, Left brachioradialis reflex intensity grade: 2+, Right patellar reflex intensity grade: 2+ and Left patellar reflex intensity grade: 2+ Extrem General: No edema Coding Level of Care Code Est Pt Prev Care >65y(62502) Diagnoses Annual physical exam Z00.00 Colon cancer screening Z12.11 Anemia, unspecified type D64.9 Anemia type: unspecified type Generalized anxiety disorder F41.1 Additional Codes KELL-7 Assessment Billing - KELL-7 Assessment Tool: KELL-7 Assessment 64483 ([id number]) PHQ-9 - 32911 - PHQ-9 Billing: Yes ([id number]) Assessment & Plan Assessment & Plan (1) Annual physical exam: Code(s): Z00.00 - Encounter for general adult medical examination without abnormal findings Category: Medical Plan: Patient is advised to eat healthy, keep well hydrated, keep active and have adequate sleep. (2) Colon cancer screening: Comment: 2014 Dr. Griffiths Code(s): Z12.11 - Encounter for screening for malignant neoplasm of colon Category: Medical Plan: Patient is reminded about colonoscopy (3) Anemia: Code(s): D64.9 - Anemia, unspecified Category: Medical Qualifiers: Anemia type: unspecified type Qualified Code(s): D64.9 - Anemia, unspecified Plan: Continue to follow (4) Generalized anxiety disorder: Code(s): F41.1 - Generalized anxiety disorder Category: Medical Plan: Continue with present medication. Plan History of Present Illness The patient is a 74-year-old male presenting for an annual physical examination. He reports experiencing a 10-pound weight loss over the past year and has a history of prostate cancer, generalized anxiety disorder, lumbar radiculopathy, and carpal tunnel syndrome. His most recent blood work indicated mild anemia without other abnormalities. Colon cancer screening was last performed in 2014. The patient reports regular follow-up with eye and dental care and adheres to his medication regimen. Health Maintenance - Blood pressure is managed with current medications. - Mild anemia noted; follow-up blood tests planned. - Last colonoscopy performed in 2014; referral for repeat screening discussed. - Abnormal swallowing noted; referral considerations if symptoms worsen. - Continues medications including sertraline, gabapentin, multivitamins, and iron supplement. - Advised increased water intake; approximately six to eight glasses daily. - Last vision and dental appointments noted as recent. - Abstinence from alcohol, tobacco, and recreational drugs confirmed. - Prostate cancer status monitored with routine blood tests. - Encouraged routine physical activity and diet management. Social History - Abstains from alcohol, tobacco, and recreational drugs. - Engages in limited physical activity, with occasional exercise mentioned. - Nutrition includes reduction in high sugar foods, such as limiting intake of Twinkies. - Limited water intake, approximately two glasses daily, advised to increase to six to eight glasses. - Regular dental and vision check-ups maintained. Review of Systems - Neurological: Denies dizziness, nausea, or vomiting. - Respiratory: Denies shortness of breath or cough. - Cardiovascular: Denies chest pain; reports blood pressure within normal limits. - Gastrointestinal: Reports occasional swallowing difficulty; denies heartburn or changes in bowel habits. - Genitourinary: Denies dysuria; reports nocturia twice. - Musculoskeletal: Reports stable carpal tunnel symptoms. - Psychiatric: Reports stable mood and anxiety levels. - Dermatologic: No new skin changes reported. - Hematologic: Denies fatigue or bruising. Physical Exam General: Cooperative, healthy appearing, comfortable, no acute distress and well developed Orientation: Patient oriented x3 Limitations: No limitations Head: Normal to inspection Ears: Hearing grossly normal bilaterally Nose: Normal external nose present Face and sinus: Normal facial exam Eyes: Appearance normal, both eyes and all related structures Neck: Normal visual inspection and Yes full ROM Respiratory: Normal respiratory effort and able to speak in complete sentences. Clear to auscultation bilaterally Cardiovascular: Regular rate and rhythm. Normal S1 and S2 GI: Normal to inspection. Soft to palpation and nontender Skin: No rashes or lesions noted Neuro: Patient oriented x3 Extremities: Normal to inspection Results - Labs: Hemoglobin 13.2 g/dL (mild anemia), Hematocrit 40.6%, Normal platelet count, Normal white blood cell count, Normal electrolytes, Normal renal function, Normal blood glucose, Normal iron levels, Normal liver function, LDL 103 mg/dL, Normal thyroid function. - Screening: Last colonoscopy in 2014, no recent screening results. Plan We will continue to monitor the patient's current conditions, emphasizing medication adherence. Colon cancer screening is due, and arrangements for a referral will be made. The patient will undergo follow-up blood tests to evaluate mild anemia. Emphasis was placed on increasing water intake and healthy lifestyle habits. He is advised to stay observant for any changes in swallowing difficulties. Regular follow-up for prostate cancer surveillance continues, and all management strategies were reviewed with him. Patient was informed and verbally consented to the use of an ambient scribe for clinic note documentation during this visit. Discussion Notes We reviewed the need for continued monitoring of the patient?s conditions, focusing on anemia and colon cancer screening. Emphasizing health maintenance, I discussed increasing water intake and maintaining a healthier lifestyle. We outlined the necessity for follow-up blood work to evaluate any changes in the mild anemia observed. We talked about the importance of re-engagement for colon cancer screening, due to the 2015 interval. Surveillance plans for previous prostate cancer were confirmed. Patient express understanding, and he noted no new health concerns or recent changes. Patient Instructions - Continue current medications as prescribed: sertraline, gabapentin, multivitamins, and iron supplement. - Increase water intake to six to eight glasses per day. - Schedule a referral for colonoscopy as discussed. - Get follow-up blood work to evaluate anemia, fasting eight hours before the test. - Maintain exercise and a balanced diet to support overall health. - Report any worsening in swallowing difficulties for further evaluation. - Continue follow-up care for prostate health and scheduled medical appointments. - Abstain from alcohol, smoking, and recreational drugs. - Perform annual vision and dental check-ups regularly. Orders: Orders Complete Blood Count Auto Diff Today D64.9 - Anemia, unspecified Ferritin Today D64.9 - Anemia, unspecified Reticulocyte Count Today D64.9 - Anemia, unspecified Comprehensive Met. Panel Today D64.9 - Anemia, unspecified Vitamin B12 and Folate Today D64.9 - Anemia, unspecified IRON PROFILE Today D64.9 - Anemia, unspecified Thyroid Stimulating Hormone Today D64.9 - Anemia, unspecified Free T4 (Free Thyroxine) Today D64.9 - Anemia, unspecified PSA,Total (Free>4and<10) Today Z85.46 - Personal history of malignant neoplasm of prostate Referrals Gastroenterology Referral D64.9 - Anemia, unspecified
== END 2025-02-28 10:53 | disposition home or self-care (01) ==
LOC: HO.HMCH 10:08
PROVIDERS: PCP Internal Medicine; Visit Provider Internal Medicine
DX: Z00.00 Encounter for general adult medical examination without abnormal findings (principal); Z12.11 Encounter for screening for malignant neoplasm of colon; D64.9 Anemia, unspecified; F41.1 Generalized anxiety disorder

== ENCOUNTER → 2025-02-28 10:07 | Outpatient (BNVA) | payer MEDICARE, SELFPAY | PROVIDERS: PCP Internal Medicine; Visit Provider Internal Medicine | DX: Z00.00 Encounter for general adult medical examination without abnormal findings (principal); D64.9 Anemia, unspecified; F41.1 Generalized anxiety disorder | CPT/HCPCS: 96127; 99397 ==

== ENCOUNTER 2025-04-11 09:04 | Day surgery (SDC) | payer MEDICARE, SELFPAY ==
--- OUTSIDE RECORDS SUMMARY | 2025-04-01 13:07 | XMS_ITS | Patient Health Record ---
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 Name Role Phone Nixon Adams MD Primary Care Provider Trey Gonzalez Jr Allergies No Known Allergies Reason For Referral No Information Medications Medication SIG (Take, Route, Fr equency, Duration) Notes Start Date End Date Status Sertraline HCl 25 MG TAKE 1 TABLET DAILY Oral for 90 Days Active Zoloft 25 MG 1 tablet Orally Once a day Active Gabapentin 300 MG TAKE 1 CAPSULE AT BE DTIME Oral for 90 Days Active Multi Vitamin - 1 tablet Orally Once a day Active Immunizations Vaccine Route Administration Date Status Comme nts Influenza Unknown 07/09/2024 Administered Problems Problem Type SNOMED Code ICD Code Onset Dates Problem Status W/U Status Risk Notes Problem [id number] Colon cancer screening (V76.51) Active confirmed Problem Dysphagia (52436896) Dysphagia (R13.10) Active confirmed Problem Anemia (162156298) Anemia (D64.9) Active confirmed Problem Personal risk factor (503992149) Colon cancer high risk (Z91.89) Active confirmed Vital Signs Temperature 97.1 degrees Fahrenheit 03/24/2025 Blood pressure diastolic 01 mm Hg 03/24/2025 Height 69.5 in 03/24/2025 Blood pressure systolic 001 mm Hg 03/24/2025 Weight 159.4 lbs 03/24/2025 BMI 23.2 kg/m2 03/24/2025 Encounters Encounter Location Date Provider Diagnosis [facility] [address] [place] [address] 03/24/2025 Trey Griffiths Jr Anemia D64.9 ; Dysphagia R13.10 and Colon cancer high risk Z91.89 Assessments Encounter Date Diagnosis (ICD Code) Assessment Notes Treatment Notes Treatment Clinical Notes Section Notes 03/24/2025 Dysphagia (ICD-10 - R13.10) We discussed his symptoms today. We discussed anemia, dysphagia, and colon cancer screening. Because of his age and symptoms as well as family history family history he will be scheduled for colonoscopy. Endoscopy is recommended at the same time because of his dysphagia. We discussed risks and benefits of both procedures today. He understands these and agrees to proceed. This will be scheduled at his convenience. 03/24/2025 Anemia (ICD-10 - D64.9) We discussed his symptoms today. We discussed anemia, dysphagia, and colon cancer screening. Because of his age and symptoms as well as family history family history he will be scheduled for colonoscopy. Endoscopy is recommended at the same time because of his dysphagia. We discussed risks and benefits of both procedures today. He understands these and agrees to proceed. This will be scheduled at his convenience. 03/24/2025 Colon cancer high risk (ICD-10 - Z91.89) We discussed his symptoms today. We discussed anemia, dysphagia, and colon cancer screening. Because of his age and symptoms as well as family history family history he will be scheduled for colonoscopy. Endoscopy is recommended at the same time because of his dysphagia. We discussed risks and benefits of both procedures today. He understands these and agrees to proceed. This will be scheduled at his convenience. Plan Of Treatment Future Test Test Name Order Date COLONOSCOPY 06/10/2015 UPPER GI ENDOSCOPY 03/24/2025 COLONOSCOPY 03/24/2025 Next Appt Details Provider Name:Trey darling Jr, 04/11/2025 12:40:00 PM, [address] [place] [address], [phone], Insurance Providers Payer Name Payer Address Payer Phone Subscriber Number Group Number Insured Name Patient Relationship to Insured Coverage Start Date Coverage End Date [facility] [address] [place], [place] [id number] [phone] [id number] INGRID [id number] Self - patient is the insured Medical (General) History Medical History History ICD Code colonoscopy 2014, hyperplastic polyp 10- year follow-up Neuropathy depression prostate cancer, History of laser therap y neuropathy
--- OUTSIDE RECORDS SUMMARY | 2025-04-01 13:08 | XMS_ITS ---
Author Organization [facility] Address [address] [place] [address] Care Team Providers Care Parts Coordinator Name Role Phone Nixon Adams MD Primary Care Provider Trey Gonzalez Jr Allergies No Known Allergies REASON FOR VISIT Patient presents today for anemia, colon screening Medications Medication SIG (Take, Route, Fr equency, Duration) Notes Start Date End Date Status Sertraline HCl 25 MG TAKE 1 TABLET DAILY Oral for 90 Days Active Zoloft 25 MG 1 tablet Orally Once a day Active Gabapentin 300 MG TAKE 1 CAPSULE AT BE DTIME Oral for 90 Days Active Multi Vitamin - 1 tablet Orally Once a day Active Problems Problem Type SNOMED Code ICD Code Onset Dates Problem Status W/U Status Risk Notes Problem Anemia (D64.9) Active confirmed Problem Dysphagia (01356360) Dysphagia (R13.10) Active confirmed Problem Personal risk factor (642655263) Colon cancer high risk (Z91.89) Active confirmed Vital Signs Temperature 97.1 degrees Fahrenheit 03/24/20 25 Blood pressure systolic 001 mm Hg 03/24/20 25 Blood pressure diastolic 01 mm Hg 025 Height 69.5 in 03/24/2025 Weight 159.4 lbs 03/24/2025 BMI 23.2 kg/m2 03/24/2025 Encounters Encounter Location Date Provider Diagnosis [facility] [address] [place] [address] 03/24/2025 Trey Griffiths Jr Anemia D64.9 ; Dysphagia R13.10 and Colon cancer high risk Z91.89 Assessments Encounter Date Diagnosis (ICD Code) Assessment Notes Treatment Notes Treatment Clinical Notes Section Notes 03/24/2025 Anemia (ICD-10 - D64.9) We discussed [...] will be scheduled at his convenience. 03/24/2025 Dysphagia (ICD-10 - R13.10) We discussed [...] Treatment Future Test Test Name Order Date UPPER GI ENDOSCOPY 03/24/2025 COLONOSCOPY 03/24/2025 Next Appt Details Follow Up: 1 Year, Reason: Provider Name:Trey darling , 04/11/2025 12:40:00 PM, [address] [place] [address], [id number], Progress Notes * STUART JULESDOB:1949 (74 yo M)Acc No.[id number]:03/24/2025 Progress Notes Patient:?STUART JULES Provider:?Trey Griffiths MD :1950???Age:74 Y???Sex:Male Jean e:03/24/2025 Address:[address] [place] [address] [id number] Pcp:Nixon Adams MD Subjective: * Chief Complaints: * ???1. Patient presents today for anemia, colon screening. * HPI: ???New symptom(s):? Stuart is a pleasant 74-year-old man seen today in consultation at the request of Dr. Adams. He has a history of colon polyps and last underwent colonoscopy in 2014 with removal of a hyperplastic polyp for which follow-up colonoscopy was recommended in 10 years. Today he reports no blood in his stools or change in his bowel habits. He does complain of dysphagia with difficulty swallowing certain foods like rice. He has to wash this down with water. This has not been progressive and he has no other symptoms of heartburn, hematemesis or melena. Weight and appetite have been stable. He was recently diagnosed with mild anemia by Dr. Adams and is scheduled for follow-up laboratory testing later this year. * ROS:?General/Constitutional:?Change in appetite?denies.?Fatigue?denies.?Respiratory:?Patient denies?shortness of breath.?Cardiovascular:?Patient denies?chest pain.?Gastrointestinal:?Comments?See HPI for details.?Genitourinary:?Difficulty urinating?denies.?Incontinence?denies.?Musculoskeletal:?Patient denies?muscle aches.?Skin:?Patient denies?pruritis.?Neurologic:?Patient denies?low back pain.?Psychiatric:?Patient denies?mental or physical abuse.? * Medical History:?Colonoscopy 2015, hyperplastic polyp 10-year follow-up, Neuropathy, Depression, prostate cancer, History of laser therapy, Neuropathy. * Family History:?Father: dece ased, diagnosed with Colon cancer.? The patient has no history of liver cancer. * Social History:?Tobacco Use:?Tobacco Use/Smoking?Are you a: nonsmoker.?Drugs/Alcohol:?Alcohol Screen?Points: 0, Interpretation: Negative.?Miscellaneous:?Marital status: . Occupation: driver trainer. * Medications:?Taking Multi Vi tamin - Tablet 1 tablet Orally Once a day , Taking Zoloft 25 MG Tablet 1 tablet Orally Once a day , Taking Gabapentin 300 MG Capsule TAKE 1 CAPSULE AT BEDTIME Oral , Taking Sertraline HCl 25 MG Tablet TAKE 1 TABLET DAILY Oral , Discontinued MoviPrep 100 GM Solution Reconstituted as directed before colonoscopy Orally , Medication List reviewed and reconciled with the patient * Allergies:?N.K.D.A. Objective: * Vitals:?Wt:159.4lbs, Ht: 69. 5 in, BMI:23.2Index, BP:001/01mm Hg, Temp:97.1, Wt- k.3. * Examination: ???General Examination: ?GENERAL APPEARANCE:?in no acute distress.?HEAD:?normocephalic.?EYES:?sclera non-icteric.?ORAL CAVITY:?mucosa moist.?NECK/THYROID:?no lymphadenopathy.?SKIN:?anicteric.?HEART:?S1, S2 normal, no murmurs.?LUNGS:?clear to auscultation bilaterally.?CHEST:?normal shape and expansion.?ABDOMEN:?soft, nontender, nondistended, bowel sounds present, no organomegaly .?EXTREMITIES:?no clubbing, cyanosis, or edema.?PSYCH:?cognitive function intact.? Assessment: * Assessment: 1.?Anemia - D64.9 (Primary)? ??2.?Dysphagia - R13.10???3.?Colon cancer high risk - Z91.89??? We discussed his symptoms to day. We discussed anemia, dysphagia, and colon cancer screening. Because of his age and symptoms as well as family history family history he will be scheduled for colonoscopy. Endoscopy is recommended at the same time because of his dysphagia. We discussed risks and benefits of both procedures today. He understands these and agrees to proceed. This will be scheduled at his convenience. Plan: * Treatment: ?Procedure: COLONOSCOPY (Ordered for 03/24/2025)* sched for 04/11/25 at 12:40 p mmacmiralax 2.?Dysphagia?Procedure: UPPER GI ENDOSCOPY (Ordered for 03/24/2025)* sched for 04/11/2025 at 12:40 pmmac ?Procedure: COLONOSCOPY (Ordered for 03/24/2025)* sched for 04/11/25 at 12:40 p mmacmiralax 3.?Colon cancer high risk?Procedure: UPPER GI ENDOSCOPY (Ordered for 03/24/2025)* sched for 04/11/2025 at 12:40 pmmac ?Procedure: COLONOSCOPY (Ordered for 03/24/2025)* sched for 04/11/25 at 12:40 p mmacmiralax * Procedure Codes:?3017F COLOR ECTAL CA SCREEN DOC REV, G9902 Pt scrn tbco and id as user, G8785 BP SCR NOT PRFRM REC REASON NOS * Preventive Medicine:? ??Screenings:?Fall Risk Screening?Fall Risk Assessment:?No falls in the past year,?Screening:?No falls in the past year,?Assessment:?Not performed, no reason specified,?Plan of Care:?Not documented, no reason specified.? * Follow Up:?1 Year * * Sign off status: Completed true * Provider:?Trey Griffiths MD Date:?0 03/24/2025 Generated for Prosper staley/Benito/eTransmitting on:?04/01/2025 01:07 PM EDT History and Physical Notes * HPI (History of Present Illness) Category Sub-Category Detail Notes Category Not es New symptom(s) Stuart is a pleasant 74-year-old man seen today in consultation at the request of Dr. Adams. He has a history of colon polyps and last underwent colonoscopy in 2014 with removal of a hyperplastic polyp for which follow-up colonoscopy was recommended in 10 years. Today he reports no blood in his stools or change in his bowel habits. He does complain of dysphagia with difficulty swallowing certain foods like rice. He has to wash this down with water. This has not been progressive and he has no other symptoms of heartburn, hematemesis or melena. Weight and appetite have been stable. He was recently diagnosed with mild anemia by Dr. Adams and is scheduled for follow-up laboratory testing later this year. Examination Category Sub-Category Detail Notes Category Not es General Examination GENERAL APPEARANCE: in no acute di stress HEAD: normocephalic EYES: sclera non-icteric NECK/THYROID: no lymphadenopathy HEART: S1, S2 normal, no mu rmurs CHEST: normal shape and exp ansion LUNGS: clear to auscultatio n bilaterally ABDOMEN: soft, nontender, non distended, bowel sounds present, no organomegaly SKIN: anicteric EXTREMITIES: no clubbing, cyanosi s, or edema PSYCH: cognitive function i ntact ORAL CAVITY: mucosa moist
[2025-04-09 13:43] VITALS: BMI 23.2
[2025-04-11 09:23] VITALS: BMI 22.7
[2025-04-11 09:31] VITALS: BMI 22.7
[2025-04-11 09:32] VITALS: BP 112/76; PULSE 62; RESP 17; TEMP 36.3; O2SAT 98
[2025-04-11] MEDS: Lactated Ringers 1,000 ML 100 ML IVCONT (09:40)
--- NOTE | 2025-04-11 10:16 | P.CONAN_ITS ---
Documented by User: Lidia Link NP 04/10/25 09:21 HPI - Anesthesia Eval Consult details Narrative: 74yo M for Upper Endoscopy and Colonoscopy [facility] Active Problems Active Problems: All Active Problems Colon cancer screening (Acute) Bilateral lumbar radiculopathy (Acute) Right lumbar radiculopathy (Acute) Peripheral neuropathy (Acute) Insomnia (Acute) Generalized anxiety disorder (Acute) Annual physical exam (Acute) Impacted cerumen (Acute) Tinnitus (Acute) Carpal tunnel syndrome of left wrist (Acute) Carpal tunnel syndrome of right wrist (Acute) Anemia (Acute) History of prostate cancer (Acute) Carpal tunnel syndrome on both sides (Acute) Past Medical History Medical History Anemia Anxiety and depression Peripheral neuropathy History of prostate cancer Family History Family History (Updated 02/16/23 @ 08:55 by OTIS Robison) Father Colon cancer Mother CVD (cardiovascular disease) Surgical History Surgical History Hx of carpal tunnel repair Hx of colonoscopy History of prostatectomy History of tonsillectomy Social History Social History (Updated 02/23/24 @ 09:13 by Nixon Adams MD) Housing: House Are you a primary life care planner to a significant other at home: No Do you presently have visiting nurse or other home services: No Alcohol intake: former Patient Tobacco Use Status: Former Tobacco user Tobacco use type: Cigarette Years Smoked: 1973 quit e-Cigarette/Vaping Use: Former Use Second Hand Smoke Exposure: No Have you been hit, kicked, punched, or otherwise hurt by someone within the past year? If so, by whom?: No Are you DNR?: No Advance Directives: No Advance Directives Information Provided: Yes Current occupational status: retired Cognitive needs: No Hearing needs: Yes Vision needs: Yes Meds Allergies Allergy/AdvReac Type Severity Reaction Status Date / Time No Known Allergies Allergy Verified 04/11/25 09:24 Home Medications ?Medication ?Instructions ?Recorded ?Confirmed ?Last Taken ?Type multivitamin 1 tab PO DAILY 09/30/20 04/11/25 12/16/20 05:30 History Exam Height,Weight and Vital Signs: Height 5 ft 9.5 in Weight 72.303 kg Assessment and Plan Assessment Anesthesia Assessment: Chart Reviewed Documented by User: Talia Owusu DO 04/11/25 10:17 PMFSH Past Medical History Medical History Anemia Anxiety and depression Peripheral neuropathy History of prostate cancer Family History Family History (Updated 02/16/23 @ 08:55 by OTIS Robison) Father Colon cancer Mother CVD (cardiovascular disease) Family history of problems with anesthesia: No Surgical History Surgical History Hx of carpal tunnel repair Hx of colonoscopy History of prostatectomy History of tonsillectomy History of Problems with Anesthesia: No Social History Social History (Updated 02/23/24 @ 09:13 by Nixon Adams MD) Housing: House Are you a primary life care planner to a significant other at home: No Do you presently have visiting nurse or other home services: No Alcohol intake: former Patient Tobacco Use Status: Former Tobacco user Tobacco use type: Cigarette Years Smoked: 1974 quit e-Cigarette/Vaping Use: Former Use Second Hand Smoke Exposure: No Have you been hit, kicked, punched, or otherwise hurt by someone within the past year? If so, by whom?: No Are you DNR?: No Advance Directives: No Advance Directives Information Provided: Yes Current occupational status: retired Cognitive needs: No Hearing needs: Yes Vision needs: Yes Meds Allergies Allergy/AdvReac Type Severity Reaction Status Date / Time No Known Allergies Allergy Verified 04/11/25 09:24 Home Medications ?Medication ?Instructions ?Recorded ?Confirmed ?Last Taken ?Type multivitamin 1 tab PO DAILY 09/30/20 04/11/25 12/16/20 05:30 History Exam Exam Date and Time: 04/11/25 1015 Height,Weight and Vital Signs: Height 5 ft 9.5 in Weight 72.303 kg Vital Signs Temperature 97.3 F 04/11/25 09:32 Pulse Rate 62 04/11/25 09:32 Respiratory Rate 17 04/11/25 09:32 Blood Pressure 112/76 04/11/25 09:32 Pulse Oximetry 98 04/11/25 09:32 Oxygen Delivery Method Room Air 04/11/25 09:32 Temperature 97.3 F 04/11/25 09:32 Pulse Rate 62 04/11/25 09:32 Respiratory Rate 17 04/11/25 09:32 Blood Pressure 112/76 04/11/25 09:32 Pulse Oximetry 98 04/11/25 09:32 Oxygen Delivery Method Room Air 04/11/25 09:32 Airway Mallampati Class: II TM Dist: >3cm Neck ROM: Full Loose/Missing/Broken Teeth: No (patient denies any loose or broken teeth) Heart: S1S2 Lungs: CTAB Assessment and Plan Assessment Anesthesia Assessment: Anesthesia Plan Discussed and Chart Reviewed Final Anesthetic Review Family History of Problems with Anesthesia: No History of Problems with Anesthesia: No NPO: Yes ASA Class: II Final Preanesthetic Review: No Changes in Pt Med Stat, Meds/Allgs Chart Reviewed, Consent Obtained/Reviewed and Anes Risks/Benef Reviewed Patient Risk: Low Procedure Risk: Low Anesthetic Plan Anesthetic Plan: MAC: and Agree w/ Assess. and Plan Disposition: Standard PACU
--- NOTE | 2025-04-11 10:53 | MHC.SHP ---
Pre-Procedural Eval Section A - 24 Hr Update-Section A only Date of Service: 04/11/25 The patient is an INPATIENT: No Changes since office visit: No Cold of Flu in the past 2 weeks, No New Medical Problems, No Changes in Medication and No Patient answered all questions The patient has been examined within 24 hours of the surgical procedure. The History & Physical has been completed within 30 days and I have reviewed it.: Yes Section B - Complete if H&P > 30 days Chief Complaint: Family history of malignant neoplasm of digestive Allergies: Allergies Allergy/AdvReac Type Severity Reaction Status Date / Time No Known Allergies Allergy Verified 04/11/25 09:24 Plan I have reviewed the history and physical and performed a pertinent physical examination on my patient. No changes have occurred unless specified. Time Spent With Patient Time: Total time managing care of this patient today ____ minutes.
[2025-04-11 11:45] VITALS: BP 94/57; PULSE 69; RESP 12; TEMP 36.6; O2SAT 97
[2025-04-11 12:00] VITALS: BP 115/63; PULSE 77; RESP 14; O2SAT 98
[2025-04-11 12:15] VITALS: BP 112/63; PULSE 69; RESP 20; TEMP 36.4; O2SAT 97
--- NOTE | 2025-04-15 07:31 | OP_ITS ---
DATE OF SERVICE: 04/11/2025 SURGEON: Trey Griffiths MD INDICATIONS: 1. Anemia. 2. Dysphagia. 3. Colon cancer screening. PREOPERATIVE DIAGNOSIS: POSTOPERATIVE DIAGNOSIS: PROCEDURE PERFORMED: Upper endoscopy with biopsy, colonoscopy to the terminal ileum. ESTIMATED BLOOD LOSS: COMPLICATIONS: ANESTHESIA: Medications, monitored anesthesia care. ASSISTANTS: SPECIMENS: DESCRIPTION OF PROCEDURE: A history and physical were performed. The risks and benefits of the procedure were explained to the patient and informed consent was obtained. The patient was placed in the left lateral decubitus position. The Olympus video gastroscope was introduced into the esophagus, stomach, and duodenum. Examination was performed. The scope was removed. He was repositioned for colonoscopy. A digital rectal exam was performed and was found to be normal. The Olympus pediatric video colonoscope was introduced in the rectum and advanced to the cecum. The cecum was identified by transillumination, palpation, and identification of ileocecal valve. Examination was performed. The scope was removed. He tolerated the procedure well and was returned to recovery room in stable condition. FINDINGS: Upper endoscopy. Esophagus: The esophagus showed an irregular EG junction. This was biopsied. There was no esophagitis. There was no evidence of Perez esophagus. No mass or lesions were identified. Stomach: Stomach showed no evidence of masses, ulcers, or polyps. There was a small sliding hiatal hernia. Biopsies were obtained from the antrum. Duodenum: The bulb and second portion were normal. Duodenal biopsies were obtained. Colonoscopy: The terminal ileum was examined and appeared normal. The visualized colonic mucosa was normal. The quality of prep was good. No polyps were identified. Retroflexed examination showed small internal hemorrhoids. IMPRESSION: 1. Gastroesophageal reflux disease. 2. Anemia. 3. Normal colonoscopy. RECOMMENDATION: 1. Follow up as needed. 2. Repeat colonoscopy is not recommended based on age for screening purposes. MD EDILIA Diego/MODL / [id number]
== END 2025-04-11 13:00 | disposition home or self-care (01) ==
PROVIDERS: PCP Internal Medicine; Visit Provider Internal Medicine Gastroenterology
PROC: (CPT 43239; principal; 2025-04-11 10:40)
DX: Z12.11 Encounter for screening for malignant neoplasm of colon (principal); K64.8 Other hemorrhoids; Z80.0 Family history of malignant neoplasm of digestive organs; K21.9 Gastro-esophageal reflux disease without esophagitis; K22.89 Other specified disease of esophagus; K44.9 Diaphragmatic hernia without obstruction or gangrene; D64.9 Anemia, unspecified; Z85.46 Personal history of malignant neoplasm of prostate; Z87.891 Personal history of nicotine dependence
CPT/HCPCS: 43239; G0105; 88305; 88313; 88342; J2003; J2371; J2704

== ENCOUNTER 2025-06-20 06:03 | Outpatient (REF) | payer MEDICARE, SELFPAY ==
--- OUTSIDE RECORDS SUMMARY | 2025-06-20 06:06 | XMS_ITS | Patient Health Record ---
Author Organization [facility] Address [address] [place] [address] Care Team Providers Care Application Dba Name Role Phone Nixon Adams MD Primary Care Provider Trey Gonzalez Jr [phone] Allergies No Known Allergies Results Component Value Reference Range Notes Pathology Reviewed date:04/16/2025 08:02:57 AM Interpretation: Performing Lab:[facility], [address] [place] [phone] Notes/Report: Reason For Referral No Information Medications Medication [...] Problem Status W/U Status Risk Notes Problem [id number] Colon cancer screening (V76.51) Active confirmed Problem Dysphagia (78140915) Dysphagia (R13.10) Active confirmed Problem Anemia (850391662) Anemia (D64.9) Active confirmed Problem Personal risk factor (480729603) Colon cancer high risk (Z91.89) Active confirmed Vital Signs Temperature 97.1 degrees Fahrenheit 03/24/2025 Blood pressure diastolic 01 mm Hg 03/24/2025 Height 69.5 in 03/24/2025 Blood pressure systolic 001 mm Hg 03/24/2025 Weight 159.4 lbs 03/24/2025 BMI 23.2 kg/m2 03/24/2025 Encounters Encounter Location Date Provider Diagnosis [facility] [address] [place], [place] [phone] 04/11/2025 Trey Griffiths Jr Colon cancer screening Z12.11 ; Anemia D64.9 and Dysphagia R13.10 [facility] [address] [place] [phone] 03/24/2025 Trey Griffiths Jr Anemia D64.9 ; Dysphagia R13.10 and Colon cancer high risk Z91.89 [facility] [address] [place] [phone] 04/16/2025 Trey Griffiths Jr Assessments Encounter Date Diagnosis (ICD Code) Assessment Notes Treatment Notes Treatment Clinical Notes Section Notes 04/11/2025 Colon cancer screening (ICD-10 - Z12.11) 04/11/2025 Anemia (ICD-10 - D64.9) 03/24/2025 Dysphagia (ICD-10 - R13.10) We discussed [...] This will be scheduled at his convenience. 04/11/2025 Dysphagia (ICD-10 - R13.10) 03/24/2025 Colon cancer high risk (ICD-10 - [...] COLONOSCOPY 03/24/2025 Next Appt Details Provider Name:Trey Lor darling Jr, 07/10/2025 03:35:00 PM, [address] [place] [address], [address], [place], [address], Insurance Providers Payer Name Payer Address Payer Phone Subscriber Number Group Number Insured Name Patient Relationship to Insured Coverage Start Date Coverage End Date [facility] [address] [place], [place] [id number] [employer] [id number] Self - patient is the insured Medical (General) History Medical History History ICD Code colonoscopy 2014, hyperplastic polyp 10- year follow-up Neuropathy depression prostate cancer, History of laser therap y neuropathy
[2025-06-20 10:53] LABS: MANUAL DIFF FLAG NO
[2025-06-20 11:02] LABS: Hematocrit 39.1 % (42.0-52.0); Hemoglobin 12.8 g/dl (14.0-18.0); Imm Gran Abs Auto 0.03 X10*3/uL (0.00-0.03); Imm Gran Pct Auto 0.4 % (0.0-0.4); Lymphocytes Absolute Auto 1.2 X10*3/uL (1.2-4.9); Mean Corpuscular HGB Conc 32.7 g/dl (31.0-36.0); Mean Corpuscular Hemoglobin 29.6 pg (27.0-33.0); Mean Corpuscular Volume 90.5 fL (80.0-98.0); NRBC Abs Auto 0.000 X10*3/uL (0.0-0.012); NRBC Pct Auto 0.0 /100WBC (0.0-0.2); Platelet Count 134 X10*3/uL (160-400); Red Blood Count 4.32 X10*6/uL (4.60-5.80); Reticulocytes Absolute 0.036 X10*6/uL (0.026-0.095); White Blood Count 8.1 X10*3/uL (4.8-10.8)
[2025-06-20 11:34] LABS: PSA,Total (Free>4and<10) < 0.10 ng/mL (0.00-4.00)
[2025-06-20 11:50] LABS: Folate 14.5 ng/mL (> or = 4.0); Vitamin B12 739 pg/mL (200-900)
[2025-06-20 11:58] LABS: Alanine Aminotransferase 20 U/L (0-40); Albumin Level 4.0 g/dL (3.5-5.0); Alkaline Phosphatase 76 U/L (39-117); Anion Gap 11 (12-20); Aspartate Amino Transferase 28 U/L (5-37); Blood Urea Nitrogen 19 mg/dL (9-16); Calcium 8.8 mg/dL (8.4-10.2); Carbon Dioxide 28 mmol/L (22-29); Chloride 108 mmol/L (96-108); Estimated Glomerular Filt Rate > 60; Iron 22 mcg/dL (45-160); Percent Iron Saturation 9 % (15-50); Potassium 4.9 mmol/L (3.3-5.1); Sodium 142 mmol/L (135-145); Total Iron Binding Capacity 245 mcg/dL (228-428); Total Protein 6.5 g/dL (6.5-8.0); Unsaturated Iron Binding 223 ug/dL
[2025-06-20 12:00] LABS: Ferritin 98 ng/mL (20-250); Free T4 (Free Thyroxine) 0.74 ng/dL (0.71-1.85); Thyroid Stimulating Hormone 2.32 uIU/mL (0.32-4.0)
== END 2025-06-20 06:04 | disposition home or self-care (01) ==
LOC: HO.HMGCLDS 06:03
PROVIDERS: PCP Internal Medicine; Visit Provider Internal Medicine
DX: Z12.5 Encounter for screening for malignant neoplasm of prostate (principal); D64.9 Anemia, unspecified; Z85.46 Personal history of malignant neoplasm of prostate
CPT/HCPCS: 36415; 80053; 82607; 82728; 82746; 83540; 84153; 84439; 84443; 85025; 85045